=== PATIENT | male | born 1990 | race African-American/Black ===

== ENCOUNTER 2021-06-26 18:44 | Emergency (ER) | payer MEDICAID ==
[~2021-06-26] VITALS: Ht 170.2 cm; Wt 62.0 kg
[2021-06-26 19:49] LABS: CLARITY,URINE CLEAR (Clear); COLOR,URINE YELLOW (Yellow); GLUCOSE, URINE NEGATIVE (Neg); KETONES,URINE NEGATIVE (Neg); LEUKOCYTE ESTERASE ,URINE NEGATIVE (Neg); NITRITES, URINE NEGATIVE (Neg); OCCULT BLOOD,URINE NEGATIVE (Neg); PROTEIN,URINE 100 mg/dl (Neg); UROBILINOGEN,URINE 0.2 E.U/dL (0.2-1.0)
[2021-06-26 19:51] LABS: UA COLLECTION TYPE VOIDED
[2021-06-26 19:54] LABS: BACTERIA,URINE FEW /HPF (Neg); MUCUS STRANDS FEW /LPF (Neg); RBC,URINE 0-2 /HPF (0-2); SQUAMOUS EPITHELIAL CELL,UR FEW /LPF (FEW); WBC,URINE NONE SEEN /HPF (0-4)
[2021-06-26] MEDS ORDERED: DIVA-81 PO (19:55)
[2021-06-26 19:56] LABS: URINE AMPHETAMINE SCREEN NEGATIVE (Neg); URINE BARBITUATE SCREEN NEGATIVE (Neg); URINE BENZODIAZEPINES SCREEN NEGATIVE (Neg); URINE CANNABINOID SCREEN NEGATIVE (Neg); URINE COCAINE SCREEN NEGATIVE (Neg); URINE METHADONE SCREEN NEGATIVE (Neg); URINE OPIATE SCREEN NEGATIVE (Neg); URINE PHENCYCLIDINE SCREEN NEGATIVE (Neg)
[2021-06-26] MEDS ORDERED: LORA10TA7 PO (19:58)
[2021-06-26] MEDS ORDERED: RISP0.5T65 PO (19:58)
[2021-06-26] MEDS ORDERED: QUET-1 PO (19:58)
[2021-06-26] MEDS ORDERED: TRAZ-251 PO (19:59)
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
--- NOTE | 2021-06-26 20:15 | NUR ---
[facility], [place] [phone]
[2021-06-26] MEDS: quetiapine 100mg tablet PO SCH (20:21)
[2021-06-26] MEDS: risperiDONE 0.5mg tablet PO SCH (20:21)
[2021-06-26] MEDS: traZODone 50mg tablet PO SCH (20:21)
[2021-06-26] MEDS: divalproex sod 250mg ER (24-hour) tablet PO SCH (20:21)
[2021-06-26 20:30] LABS: BASOPHILS % (AUTO) 0.8 % (0-1); EOSINOPHILS # (AUTO) 0.1 X10'3 (0-0.9); EOSINOPHILS % (AUTO) 2.2 % (0-6); HEMATOCRIT 38.1 % (42.0-52.0); HEMOGLOBIN 12.6 g/dl (14.0-17.9); LYMPHOCYTES # (AUTO) 1.8 X10'3 (1.1-4.8); LYMPHOCYTES % (AUTO) 48.4 % (21-51); MEAN CORPUSCULAR HEMOGLOBIN 27.7 PG (27.0-31.0); MEAN CORPUSCULAR VOLUME 84.1 FL (78-98); MEAN PLATELET VOLUME 9.5 FL (7.4-10.4); MONOCYTES # (AUTO) 0.3 X10'3 (0-0.9); MONOCYTES % (AUTO) 7.5 % (2-12); NEUTROPHILS # (AUTO) 1.5 X10'3 (1.8-7.7); NEUTROPHILS % (AUTO) 41.1 % (42-75); PLATELET COUNT 137 X10'3 (140-440); RED BLOOD COUNT 4.53 X10'6 (4.70-6.10); RED CELL DISTRIBUTION WIDTH 14.3 % (11.5-14.5); WHITE BLOOD COUNT 3.7 X10'3 (4.5-11.0)
--- NOTE | 2021-06-26 20:46 | NUR ---
The patient is resting quietly on his bed. He took his HS medications with no problems.
[2021-06-26 20:57] LABS: ALANINE AMINOTRANSFERASE 32 U/L (12-78); ALBUMIN 3.3 G/DL (3.4-5.0); ALKALINE PHOSPHATASE 61 IU/L (46-116); ANION GAP 7 (8-16); ASPARTATE AMINO TRANSFERASE 19 U/L (10-37); BILIRUBIN,TOTAL 0.2 MG/DL (0.1-1.0); BLOOD UREA NITROGEN 15 MG/DL (7-18); BUN/CREATININE RATIO 15.8 (5.4-32.0); CALCIUM 8.2 MG/DL (8.5-10.1); CHLORIDE 107 MMOL/L (99-107); CREATININE 0.95 MG/DL (0.60-1.10); GLUCOSE 85 MG/DL (70-104); SODIUM 143 MMOL/L (135-145); TOTAL CARBON DIOXIDE 29.3 MMOL/L (24-32); TOTAL PROTEIN 6.6 G/DL (6.4-8.2); eGFR > 90 ML/MIN
[2021-06-26 21:07] LABS: ETHANOL < 0.010 GM/DL (0.0-0.010); VALPROATE 56 UG/ML (50-100)
--- NOTE | 2021-06-26 23:21 | NUR ---
The patient appears to be sleeping
--- NOTE | 2021-06-27 00:28 | NUR ---
The patient is awake and smiling
--- NOTE | 2021-06-27 01:24 | NUR ---
packet sent to [facility]
--- NOTE | 2021-06-27 03:27 | NUR ---
The patient has been quietly resting on his bed but has been awake
--- NOTE | 2021-06-27 04:27 | NUR ---
Sleeping at this time.
--- NOTE | 2021-06-27 05:02 | NUR ---
The patient has been awake most of the night but has been quietly resting on his bed
--- NOTE | 2021-06-27 06:30 | NUR ---
Received Pt in bed sleeping w/o distress.
[2021-06-27] MEDS: loratadine 10mg tablet PO SCH (07:56)
[2021-06-27] MEDS: quetiapine 100mg tablet PO SCH ×3 (07:56→20:11)
[2021-06-27] MEDS: risperiDONE 0.5mg tablet PO SCH ×2 (07:56→20:11)
--- NOTE | 2021-06-27 10:06 | NUR ---
Pt woke and used bathroom and asked for more water. Pt polite and cooperative at this time. Pt ate breakfast and took AM meds w/o issue. Pt waiting to be seen by [facility].
--- NOTE | 2021-06-27 11:30 | NUR ---
Pt up to bathroom. Remains quiet and polite. Returned to bed and remains there resting.
--- NOTE | 2021-06-27 14:15 | NUR ---
Pt was seen by [facility] and the 5150 hold was rescinded. Pt's release/discharge will be delayed until tomorrow morning due to [facility] not available on Monday to plan for appropriate discharge and transport. Pt ate lunch and returned to bed and is resting.
--- NOTE | 2021-06-27 17:20 | NUR ---
Pt remains in bed resting. Was seen by ER doc making rounds with no complaints. Pt uses one word answers and appears fearful at times.
--- NOTE | 2021-06-27 20:00 | NUR ---
THe patient was up on the unit and social with others. He had no violent or agitated behaviors.
[2021-06-27] MEDS: divalproex sod 250mg ER (24-hour) tablet PO SCH (20:11)
[2021-06-27] MEDS: traZODone 50mg tablet PO SCH (20:11)
--- NOTE | 2021-06-27 22:06 | NUR ---
The patient is resting on his bed but awake.
[2021-06-27] MEDS ORDERED: traZODone 50mg tablet PO ONE (22:10)
--- NOTE | 2021-06-27 23:33 | NUR ---
The patient appears to be sleeping
--- NOTE | 2021-06-28 01:07 | NUR ---
The patient appears to be sleeping
--- NOTE | 2021-06-28 03:04 | NUR ---
The patient appears to be sleeping well. Up to use the bathroom briefly and is now back in bed
--- NOTE | 2021-06-28 04:41 | NUR ---
THe patient is awake
[2021-06-28 06:27] VITALS: BP 132/100
--- NOTE | 2021-06-28 07:07 | NUR ---
Patient reclining in bed. No distress observed. Continue to monitor.
--- NOTE | 2021-06-28 08:10 | NUR ---
Patient eating breakfast. No distress observed. Continue to monitor.
[2021-06-28] MEDS: risperiDONE 0.5mg tablet PO SCH (08:14)
[2021-06-28] MEDS: quetiapine 100mg tablet PO SCH (08:14)
[2021-06-28] MEDS: loratadine 10mg tablet PO SCH (08:14)
--- NOTE | 2021-06-28 10:24 | NUR ---
Patient awake and sitting up in bed. No distress observed. Continue to monitor.
--- NOTE | 2021-06-28 10:28 | NUR ---
Patient is now pacing in front of the nurses station. Continue to monitor.
--- NOTE | 2021-06-28 10:45 | NUR ---
Rukhsana, [employer]osp[employer] Program Management Officer, . To pick patient up around noon.
--- NOTE | 2021-06-28 12:01 | NUR ---
Patient continues to pace. No distress observed. Patient pleasant when spoken to. Continue to monitor.
[2021-06-28] MEDS ORDERED: TRAZ-256 PO (12:14)
== END 2021-06-28 12:22 | disposition home or self-care (01) ==
LOC: ER 18:45
DX: F84.0 Autistic disorder (principal); Z20.822 Contact with and (suspected) exposure to COVID-19; F20.9 Schizophrenia, unspecified; Z79.899 Other long term (current) drug therapy
CPT/HCPCS: 36415; 80053; 80164; 80305; 80320; 81001; 84443; 85025; 87635; 99285; C9803